=== PATIENT | female | born 1975 | race Caucasian/White ===

== ENCOUNTER 2017-11-19 17:55 | Emergency (ER) | payer MEDICAID, OTHER ==
[~2017-11-19] VITALS: Ht 170.2 cm; Wt 58.5 kg
[2017-11-19 17:59] VITALS: BP 154/97
== END 2017-11-19 19:25 | disposition home or self-care (01) ==
LOC: ED 19:00
DX: L03.115 Cellulitis of right lower limb (principal); L02.415 Cutaneous abscess of right lower limb; F17.200 Nicotine dependence, unspecified, uncomplicated
CPT/HCPCS: 99283